=== PATIENT | male | born 1950 | race Caucasian/White ===

== ENCOUNTER 2022-04-21 10:20 | Emergency (ER) | payer MEDICARE, OTHER ==
[~2022-04-21] VITALS: Ht 167.6 cm; Wt 68.0 kg
[2022-04-21 10:20] VITALS: BP_SYST 154
[2022-04-21] MEDS ORDERED: predniSONE 20 MG TABLET PO ONE (10:45)
[2022-04-21] MEDS ORDERED: ALBUTEROL SULFATE 0.083% 2.5 MG/3 ML VIAL.NEB INH ONE (10:45)
[2022-04-21] MEDS ORDERED: IPRATROPIUM BROM 0.5 MG/2.5 ML VIAL.NEB (ATROVENT) INH ONE (10:45)
--- NOTE | 2022-04-21 10:52 | NUR ---
RECEIVED PT FROM JACQUELINE BEEBE. PT KULDIP ACLS FOR SOB. PT HAS COPD/ASTHMA, HAS BEEN TAKING BREATHING TREATMENTS WITH NO RESOLVE IN SOB. PT IS AAOX4, PERRL, R/A 97%. PT STATES HE HAS HAD NAUSEA. DISTAL PULSES NORMAL. TELEMONITOR SHOWS SINUS TACH HR 102, PT RECEIVING BREATHING TX AT THIS TIME. DISTAL PULSES NORMAL, SKIN INTACT, NO EDEMA. DENIES PAIN. SIDERAILS UP X2.
--- NOTE | 2022-04-21 10:55 | NUR ---
RT AT BEDSIDE GIVING BREATHING TX.
--- NOTE | 2022-04-21 10:55 | NUR ---
# 20 gauge angiocath placed to LW. Use of asceptic technique. Opsite placed over site. Blood return noted. Blood for lab drawn from site. Flushed with 10 cc of normal saline. No evidence of infiltration noted. Patient tolerated well.
--- NOTE | 2022-04-21 11:16 | NUR ---
DR. TODD AT BEDSIDE TO ASSESS PT.
[2022-04-21] MEDS ORDERED: IPRA3AMP9 INH (11:23)
[2022-04-21] MEDS ORDERED: PRED20TA PO (11:23)
[2022-04-21] MEDS ORDERED: ALBMDI INH (11:23)
[2022-04-21] MEDS ORDERED: KETOROLAC TROMETHAMINE 60 MG/2 ML VIAL IM ONE (11:30)
--- NOTE | 2022-04-21 11:40 | NUR ---
TORADOL 60MG IM GIVEN TO LEFT DELTOID. PREDNISONE PO 60MG GIVEN AND TOLERATED WELL.
[2022-04-21 11:51] VITALS: BP_SYST 154
--- NOTE | 2022-04-21 12:12 | NUR ---
DR. CHAVEZ, [facility], CALLED BACK TO SPEAK TO DR. TODD REGARDING PT STATUS
--- NOTE | 2022-04-21 12:13 | NUR ---
PT UNABLE TO DRIVE HIMSELF HOME AND STATES HE NEEDS A W/C TO GET TO HIS HOUSE. JACQUELINE DREW CALLED [facility] TO SCHEDULE AMBULANCE RIDE HOME. AWAITING CALL BACK.
--- NOTE | 2022-04-21 14:13 | NUR ---
PT TRANSFERRED BLS TO HOME AT THIS TIME. REPORT GIVEN TO DIONNE WOO WITH [facility]. IV CATH REMOVED. SITE COVERED WITH [employer] DRESSING. SITE WNL. PT DENIES PAIN. RESP E/U. NO RESP DISTRESS NOTED. PT'S DISCHARGE ORDERS REVIEWED ALL QUESTIONS AND CONCERNS ADDRESSED.
--- NOTE | 2022-04-21 18:53 | NUR ---
Patient given written and verbal discharge instructions and verbalizes understanding. ER MD discussed with patient the results and treatment provided. Patient in stable condition. ID arm band removed. IV catheter removed intact and dressing applied, no active bleeding. Rx of ALBUTEROL MDA, DUONEB AND PREDNISONE given. Patient educated on pain management and to follow up with PMD. Pain Scale 0/10. Opportunity for questions provided and answered. Medication side effect fact sheet provided.
== END 2022-04-21 11:51 | disposition home or self-care (01) ==
LOC: SED 10:20
DX: J44.1 Chronic obstructive pulmonary disease with (acute) exacerbation (principal); R06.02 Shortness of breath; R05.9 Cough, unspecified; F12.90 Cannabis use, unspecified, uncomplicated; Z79.899 Other long term (current) drug therapy
CPT/HCPCS: 94640; 99283; 96372; J7512; J1885; J7613

== ENCOUNTER 2022-11-12 14:23 | Inpatient (IN) | payer MEDICARE, MEDICAID ==
[~2022-11-12] VITALS: Ht 167.6 cm; Wt 60.8 kg
[~2022-11-12 14:23] MED LIST: ALBMDI INH; IPRA3AMP9 INH; PRED20TA PO
[2022-11-12 14:37] VITALS: BP_SYST 162; PULSE 83; RESP 26; TEMP 97; O2SAT 97
[2022-11-12 14:39] LABS: ABG O2 SAT% ESTIMATE 95.9 % (94.0-100.0); BLOOD GAS PCO2 42.2 mmHg (32.0-45.0); BLOOD GAS PH 7.314 (7.350-7.450); BLOOD GAS PO2 87.4 mmHg (75.0-100.0)
[2022-11-12 14:43] LABS: ALLEN'S TEST POSITIVE (P)
[2022-11-12 14:54] LABS: BASOPHILS % (AUTO) 0.1 % (0.0-2.0); HEMATOCRIT 35.1 % (36-54); HEMOGLOBIN 10.8 g/dL (14.0-18.0); LYMPHOCYTES # (AUTO) 0.9 K/uL (1.0-5.5); LYMPHOCYTES % (AUTO) 4.5 % (20.5-51.5); MEAN CORPUSCULAR HEMOGLOBIN 25 pg (27-31); MEAN CORPUSCULAR HGB CONC 31 % (32-36); MEAN CORPUSCULAR VOLUME 80 fL (79.0-98.0); MONOCYTES # (AUTO) 1.1 K/uL (0.0-1.0); MONOCYTES % (AUTO) 5.2 % (1.7-9.3); NEUTROPHILS # (AUTO) 18.6 K/uL (1.8-7.7); NEUTROPHILS % (AUTO) 90.2 % (40.0-70.0); PLATELET COUNT (AUTO) 455 K/uL (130-430); WHITE BLOOD COUNT (AUTO) 20.6 K/uL (4.8-10.8)
[2022-11-12] MEDS ORDERED: FLUO20CA42 PO (15:00)
[2022-11-12] MEDS ORDERED: SENN-153 PO (15:00)
[2022-11-12] MEDS ORDERED: PRED10TA PO (15:00)
[2022-11-12] MEDS ORDERED: FAMO-132 PO (15:00)
[2022-11-12] MEDS ORDERED: AZIT-93 PO (15:00)
[2022-11-12 15:22] LABS: ANION GAP 14 (5-15); CALCIUM 8.1 mg/dL (8.4-11.0); CARBON DIOXIDE 22 mmol/L (23-29); CHLORIDE 99 mmol/L (98-107); CREATININE 1.48 mg/dL (0.55-1.30); GLUCOSE 217 mg/dL (74-106); POTASSIUM 4.5 mmol/L (3.5-5.1); SODIUM SERUM 135 mmol/L (136-145); UREA NITROGEN, BLOOD 27 mg/dL (8-21)
[2022-11-12 15:27] LABS: ALANINE AMINOTRANSFERASE 23 U/L (12-78); ALBUMIN 3.5 g/dL (3.4-4.8); ASPARTATE AMINOTRANSFERASE 14 U/L (10-37); TOTAL BILIRUBIN 0.5 mg/dL (0.0-1.0); TOTAL PROTEIN, SERUM 6.8 g/dL (6.4-8.3)
[2022-11-12 15:53] LABS: BILIRUBIN,URINE NEGATIVE (NEGATIVE); BLOOD, URINE NEGATIVE (NEGATIVE); CLARITY/URINE Clear (CLEAR); COLOR,URINE YELLOW (YELLOW); GLUCOSE,URINE NEGATIVE (NEGATIVE); KETONES,URINE NEGATIVE (NEGATIVE); LEUKOCYTE ESTERASE ,URINE NEGATIVE (NEGATIVE); NITRITE, URINE NEGATIVE (NEGATIVE); PH,URINE 5.5 (5.0-8.0); UROBILINOGEN,URINE 0.2 (0.2-1.0)
[2022-11-12 16:11] LABS: PROTEIN URINE TRACE (NEGATIVE)
[2022-11-12 16:12] LABS: BACTERIA,URINE RARE /HPF (None Seen); HYALINE CASTS, URINE 0-10 /LPF (None Seen); RBC,URINE NONE SEEN /HPF (0-3); WBC,URINE 0-3 /HPF (0-3)
[2022-11-12 16:13] LABS: MUCUS,URINE 1+ /LPF (None Seen)
[2022-11-12] MEDS ORDERED: NS 1000 ML IV.SOLN IV ONE (17:15)
[2022-11-12 17:32] LABS: INR 1.1 (0.80-1.20); PROTHROMBIN TIME 11.5 SECS (9.5-12.5)
[2022-11-12] MEDS ORDERED: PIPERACILLIN/TAZO 4.5 GM in NS 100 ML IV ONE (18:00)
[2022-11-12] MEDS: IPRATROPIUM/ALBUTEROL SULFATE 3 ML AMPUL.NEB (DUONEB) INH SCH (20:15)
[2022-11-12] MEDS ORDERED: ACETAMINOPHEN 325 MG TABLET PO PRN (20:15)
[2022-11-12] MEDS ORDERED: ALPRAZolam 0.25 MG TABLET PO PRN (20:15)
[2022-11-12] MEDS ORDERED: traMADol HCL HCL 50 MG TABLET (ULTRAM) PO PRN (20:30)
[2022-11-12] MEDS ORDERED: TEMAZEPAM 15 MG CAPSULE PO PRN (20:30)
[2022-11-12] MEDS ORDERED: TUBERCULIN,PURIF.PROT.DERIV. 0.1 ML SYR ID ONE (21:46)
[2022-11-12 21:55] VITALS: BP_SYST 161; PULSE 64; RESP 20; TEMP 97.2; O2SAT 95
[2022-11-12 22:28] VITALS: BP_SYST 161; PULSE 64; RESP 20; TEMP 97.2
[2022-11-12 22:36] VITALS: O2SAT 95
[2022-11-12 22:54] VITALS: BP_SYST 161; PULSE 64; RESP 20; TEMP 97.2; O2SAT 95
[2022-11-12] MEDS: TAMSULOSIN HCL 0.4 MG CAP PO SCH (23:12)
[2022-11-12] MEDS: SENNOSIDES 8.6 MG TABLET PO SCH (23:12)
[2022-11-12] MEDS ORDERED: PIPERACILLIN/TAZOBACTAM 3.375 GM/VIAL (ZOSYN) IV ONE (23:14)
[2022-11-12] MEDS ORDERED: METHYLPREDNISOLONE SOD SUCC 40 MG/ML VIAL ONE (23:17)
[2022-11-12] MEDS: IPRATROPIUM/ALBUTEROL SULFATE 3 ML AMPUL.NEB (DUONEB) INH PRN (23:39)
[2022-11-12] MEDS: PIPERACILLIN/TAZO 3.375/DEX-IS 50 ML IV SCH (23:39)
[2022-11-12] MEDS: METHYLPREDNISOLONE SOD SUCC 40 MG/ML VIAL IVP SCH (23:39)
[2022-11-12] MEDS: D5LR 1,000 ML IV SCH (23:40)
[2022-11-13] VITALS (12 sets, daily range): BP systolic 134–161; PULSE 53–80; RESP 18–24; TEMP 97.5–98.5; O2SAT 93–98
[2022-11-13] MEDS: IPRATROPIUM/ALBUTEROL SULFATE 3 ML AMPUL.NEB (DUONEB) INH SCH ×4 (01:17→20:37)
[2022-11-13] MEDS: PIPERACILLIN/TAZO 3.375/DEX-IS 50 ML IV SCH ×3 (05:16→18:18)
[2022-11-13 06:21] LABS: BASOPHILS % (AUTO) 0.1 % (0.0-2.0); HEMATOCRIT 31.5 % (36-54); HEMOGLOBIN 9.7 g/dL (14.0-18.0); LYMPHOCYTES # (AUTO) 0.3 K/uL (1.0-5.5); LYMPHOCYTES % (AUTO) 1.2 % (20.5-51.5); MEAN CORPUSCULAR HEMOGLOBIN 25 pg (27-31); MEAN CORPUSCULAR HGB CONC 31 % (32-36); MEAN CORPUSCULAR VOLUME 81 fL (79.0-98.0); MONOCYTES # (AUTO) 0.5 K/uL (0.0-1.0); MONOCYTES % (AUTO) 2.4 % (1.7-9.3); NEUTROPHILS # (AUTO) 20.5 K/uL (1.8-7.7); NEUTROPHILS % (AUTO) 96.3 % (40.0-70.0); PLATELET COUNT (AUTO) 296 K/uL (130-430); RED BLOOD CELL COUNT(AUTO) 3.91 MIL/uL (4.2-6.2); RED CELL DISTRIBUTION WIDTH 23.9 % (9.0-15.0); WHITE BLOOD COUNT (AUTO) 21.3 K/uL (4.8-10.8)
[2022-11-13 06:44] LABS: ALANINE AMINOTRANSFERASE 40 U/L (12-78); ALBUMIN 2.9 g/dL (3.4-4.8); ANION GAP 13 (5-15); ASPARTATE AMINOTRANSFERASE 30 U/L (10-37); CALCIUM 7.9 mg/dL (8.4-11.0); CARBON DIOXIDE 20 mmol/L (23-29); CHLORIDE 104 mmol/L (98-107); CREATININE 0.99 mg/dL (0.55-1.30); GLUCOSE 159 mg/dL (74-106); PHOSPHORUS 3.3 mg/dL (2.7-4.5); POTASSIUM 3.8 mmol/L (3.5-5.1); SODIUM SERUM 137 mmol/L (136-145); TOTAL BILIRUBIN 0.5 mg/dL (0.0-1.0); TOTAL IRON BIND. CAPACITY 302 ug/dL (250-450); UREA NITROGEN, BLOOD 25 mg/dL (8-21)
[2022-11-13] MEDS: LORazepam 2 MG/ML VIAL IVP PRN ×3 (07:31→20:30)
[2022-11-13] MEDS: SENNOSIDES 8.6 MG TABLET PO SCH ×2 (09:49→20:30)
[2022-11-13] MEDS: METHYLPREDNISOLONE SOD SUCC 40 MG/ML VIAL IVP SCH ×2 (09:49→18:30)
[2022-11-13] MEDS: FAMOTIDINE 20 MG TABLET PO SCH (09:49)
[2022-11-13] MEDS: MULTIVITS,CA,MINERALS/IRON/FA 1 TABLET PO SCH (09:49)
[2022-11-13] MEDS: TAMSULOSIN HCL 0.4 MG CAP PO SCH ×2 (09:49→20:30)
[2022-11-13] MEDS: FLUoxetine HCL 20 MG CAPSULE (PROzac) PO SCH (09:50)
[2022-11-13] MEDS ORDERED: ONDANSETRON HCL 4 MG/2 ML VIAL IVP PRN (11:15)
[2022-11-13] MEDS: AZITHROMYCIN 500 MG in NS 250 ML IV SCH (15:17)
[2022-11-13] MEDS: SOD FERRIC GLUC COMPLEX/SUC 125 MG in NS 100 ML IV SCH (15:18)
[2022-11-13] MEDS ORDERED: QUEtiapine FUMARATE 25 MG TABLET PO SCH (18:00)
[2022-11-13] MEDS: D5LR 1,000 ML IV SCH (20:31)
[2022-11-14] VITALS (10 sets, daily range): BP systolic 114–138; PULSE 55–103; RESP 18–19; TEMP 97.2–98.8; O2SAT 94–99
[2022-11-14] MEDS: PIPERACILLIN/TAZO 3.375/DEX-IS 50 ML IV SCH ×4 (00:34→19:52)
[2022-11-14] MEDS: METHYLPREDNISOLONE SOD SUCC 40 MG/ML VIAL IVP SCH ×4 (00:34→20:29)
[2022-11-14] MEDS: LORazepam 2 MG/ML VIAL IVP PRN ×3 (00:34→20:30)
[2022-11-14] MEDS: D5LR 1,000 ML IV SCH ×2 (05:06→11:37)
[2022-11-14] MEDS: IPRATROPIUM/ALBUTEROL SULFATE 3 ML AMPUL.NEB (DUONEB) INH SCH ×3 (07:29→19:57)
[2022-11-14 08:34] LABS: ANION GAP 10 (5-15); CALCIUM 8.1 mg/dL (8.4-11.0); CARBON DIOXIDE 24 mmol/L (23-29); CHLORIDE 106 mmol/L (98-107); CREATININE 0.71 mg/dL (0.55-1.30); GLUCOSE 167 mg/dL (74-106); POTASSIUM 3.5 mmol/L (3.5-5.1); SODIUM SERUM 140 mmol/L (136-145); UREA NITROGEN, BLOOD 15 mg/dL (8-21)
[2022-11-14 08:51] LABS: HEMATOCRIT 27.6 % (36-54); HEMOGLOBIN 8.7 g/dL (14.0-18.0); LYMPHOCYTES # (AUTO) 0.2 K/uL (1.0-5.5); LYMPHOCYTES % (AUTO) 1.2 % (20.5-51.5); MEAN CORPUSCULAR HEMOGLOBIN 25 pg (27-31); MEAN CORPUSCULAR HGB CONC 31 % (32-36); MEAN CORPUSCULAR VOLUME 79 fL (79.0-98.0); MONOCYTES # (AUTO) 0.4 K/uL (0.0-1.0); MONOCYTES % (AUTO) 3.1 % (1.7-9.3); NEUTROPHILS # (AUTO) 12.8 K/uL (1.8-7.7); NEUTROPHILS % (AUTO) 95.7 % (40.0-70.0); PLATELET COUNT (AUTO) 245 K/uL (130-430); RED BLOOD CELL COUNT(AUTO) 3.48 MIL/uL (4.2-6.2)
[2022-11-14 09:10] LABS: WHITE BLOOD COUNT (AUTO) 13.4 K/uL (4.8-10.8)
[2022-11-14] MEDS: MULTIVITS,CA,MINERALS/IRON/FA 1 TABLET PO SCH (11:26)
[2022-11-14] MEDS: TAMSULOSIN HCL 0.4 MG CAP PO SCH ×2 (11:26→21:20)
[2022-11-14] MEDS: FLUoxetine HCL 20 MG CAPSULE (PROzac) PO SCH (11:26)
[2022-11-14] MEDS: FAMOTIDINE 20 MG TABLET PO SCH (11:27)
[2022-11-14] MEDS: SENNOSIDES 8.6 MG TABLET PO SCH ×2 (11:27→21:20)
[2022-11-14] MEDS: AZITHROMYCIN 500 MG in NS 250 ML IV SCH (13:51)
[2022-11-14] MEDS: SOD FERRIC GLUC COMPLEX/SUC 125 MG in NS 100 ML IV SCH (14:10)
[2022-11-14] MEDS ORDERED: QUEtiapine FUMARATE 25 MG TABLET PO SCH (18:00)
[2022-11-15] VITALS (9 sets, daily range): BP systolic 115–141; PULSE 42–80; RESP 17–20; TEMP 96.9–98.4; O2SAT 96–98
[2022-11-15] MEDS: IPRATROPIUM/ALBUTEROL SULFATE 3 ML AMPUL.NEB (DUONEB) INH SCH ×4 (02:10→20:01)
[2022-11-15] MEDS: PIPERACILLIN/TAZO 3.375/DEX-IS 50 ML IV SCH ×5 (06:49→23:10)
[2022-11-15 09:20] LABS: ABG O2 SAT% ESTIMATE 95.7 % (94.0-100.0); BLOOD GAS BASE EXCESS 1.4 mmol/L (-3.0-3.0); BLOOD GAS PCO2 32.3 mmHg (32.0-45.0); BLOOD GAS PH 7.488 (7.350-7.450); BLOOD GAS PO2 72.1 mmHg (75.0-100.0)
[2022-11-15 09:28] LABS: ALLEN'S TEST POSITIVE (P)
[2022-11-15] MEDS: FAMOTIDINE 20 MG TABLET PO SCH (10:27)
[2022-11-15] MEDS: FLUoxetine HCL 20 MG CAPSULE (PROzac) PO SCH (10:27)
[2022-11-15] MEDS: MULTIVITS,CA,MINERALS/IRON/FA 1 TABLET PO SCH (10:27)
[2022-11-15] MEDS: TAMSULOSIN HCL 0.4 MG CAP PO SCH ×2 (10:27→20:27)
[2022-11-15] MEDS: METHYLPREDNISOLONE SOD SUCC 40 MG/ML VIAL IVP SCH ×2 (10:28→20:28)
[2022-11-15] MEDS: SENNOSIDES 8.6 MG TABLET PO SCH ×2 (10:32→20:27)
[2022-11-15] MEDS ORDERED: CYANOCOBALAMIN (VITAMIN B-12) 1,000 MCG TABLET PO ONE (15:00)
[2022-11-15] MEDS: AZITHROMYCIN 500 MG in NS 250 ML IV SCH (15:29)
[2022-11-15] MEDS: SOD FERRIC GLUC COMPLEX/SUC 125 MG in NS 100 ML IV SCH (16:32)
[2022-11-15] MEDS ORDERED: EPOETIN ALFA-EPBX 4,000 UNITS/ML VIAL SUBCUT ONE (18:00)
[2022-11-15] MEDS: QUEtiapine FUMARATE 100 MG TABLET PO SCH (19:04)
[2022-11-15] MEDS: D5LR 1,000 ML IV SCH (23:09)
[2022-11-16] VITALS (11 sets, daily range): BP systolic 133–148; PULSE 62–76; RESP 16–18; TEMP 97.6–98.2; O2SAT 92–98
[2022-11-16] MEDS: IPRATROPIUM/ALBUTEROL SULFATE 3 ML AMPUL.NEB (DUONEB) INH SCH ×4 (01:41→20:58)
[2022-11-16] MEDS: PIPERACILLIN/TAZO 3.375/DEX-IS 50 ML IV SCH ×3 (05:18→17:50)
[2022-11-16 06:36] LABS: BASOPHILS # (AUTO) 0.1 K/uL (0.0-0.2); BASOPHILS % (AUTO) 0.4 % (0.0-2.0); EOSINOPHILS % (AUTO) 0.1 % (0.0-4.0); HEMATOCRIT 28.3 % (36-54); HEMOGLOBIN 9.1 g/dL (14.0-18.0); LYMPHOCYTES # (AUTO) 0.2 K/uL (1.0-5.5); LYMPHOCYTES % (AUTO) 1.7 % (20.5-51.5); MEAN CORPUSCULAR HEMOGLOBIN 25 pg (27-31); MEAN CORPUSCULAR HGB CONC 32 % (32-36); MEAN CORPUSCULAR VOLUME 79 fL (79.0-98.0); MONOCYTES # (AUTO) 0.8 K/uL (0.0-1.0); MONOCYTES % (AUTO) 5.9 % (1.7-9.3); NEUTROPHILS # (AUTO) 12.5 K/uL (1.8-7.7); NEUTROPHILS % (AUTO) 91.9 % (40.0-70.0); PLATELET COUNT (AUTO) 253 K/uL (130-430); RED BLOOD CELL COUNT(AUTO) 3.58 MIL/uL (4.2-6.2); RED CELL DISTRIBUTION WIDTH 24.2 % (9.0-15.0); RETICULOCYTE COUNT 1.1 % (0.5-1.5); WHITE BLOOD COUNT (AUTO) 13.6 K/uL (4.8-10.8)
[2022-11-16 07:10] LABS: ALANINE AMINOTRANSFERASE 190 U/L (12-78); ALBUMIN 2.7 g/dL (3.4-4.8); ANION GAP 8 (5-15); ASPARTATE AMINOTRANSFERASE 29 U/L (10-37); CALCIUM 8.4 mg/dL (8.4-11.0); CARBON DIOXIDE 27 mmol/L (23-29); CHLORIDE 106 mmol/L (98-107); CREATININE 0.71 mg/dL (0.55-1.30); GLUCOSE 138 mg/dL (74-106); POTASSIUM 3.3 mmol/L (3.5-5.1); SODIUM SERUM 141 mmol/L (136-145); TOTAL BILIRUBIN 0.7 mg/dL (0.0-1.0); TOTAL PROTEIN, SERUM 5.5 g/dL (6.4-8.3); UREA NITROGEN, BLOOD 10 mg/dL (8-21)
[2022-11-16] MEDS: SENNOSIDES 8.6 MG TABLET PO SCH ×2 (08:54→20:42)
[2022-11-16] MEDS: MULTIVITS,CA,MINERALS/IRON/FA 1 TABLET PO SCH (08:54)
[2022-11-16] MEDS: QUEtiapine FUMARATE 25 MG TABLET PO SCH (08:54)
[2022-11-16] MEDS: FAMOTIDINE 20 MG TABLET PO SCH (08:55)
[2022-11-16] MEDS: CYANOCOBALAMIN (VITAMIN B-12) 1,000 MCG TABLET PO SCH (08:55)
[2022-11-16] MEDS: TAMSULOSIN HCL 0.4 MG CAP PO SCH ×2 (08:55→20:42)
[2022-11-16] MEDS: METHYLPREDNISOLONE SOD SUCC 40 MG/ML VIAL IVP SCH ×2 (10:25→21:21)
[2022-11-16] MEDS ORDERED: CYAN-45 PO (13:00)
[2022-11-16] MEDS ORDERED: TAMS0.4C96 PO (13:00)
[2022-11-16] MEDS ORDERED: SER25 PO (13:00)
[2022-11-16] MEDS ORDERED: SER100 PO (13:00)
[2022-11-16] MEDS ORDERED: PRED10TA PO (13:02)
[2022-11-16] MEDS: AZITHROMYCIN 500 MG in NS 250 ML IV SCH (13:53)
[2022-11-16] MEDS: SOD FERRIC GLUC COMPLEX/SUC 125 MG in NS 100 ML IV SCH (13:53)
[2022-11-16] MEDS: QUEtiapine FUMARATE 100 MG TABLET PO SCH (17:07)
[2022-11-16] MEDS: D5LR 1,000 ML IV SCH (21:53)
[2022-11-17] VITALS (11 sets, daily range): BP systolic 113–159; PULSE 61–85; RESP 17–20; TEMP 97.6–98; O2SAT 90–99
[2022-11-17] MEDS: PIPERACILLIN/TAZO 3.375/DEX-IS 50 ML IV SCH ×4 (00:38→18:10)
[2022-11-17] MEDS: IPRATROPIUM/ALBUTEROL SULFATE 3 ML AMPUL.NEB (DUONEB) INH SCH ×4 (01:34→19:39)
[2022-11-17] MEDS: SENNOSIDES 8.6 MG TABLET PO SCH ×2 (08:51→20:49)
[2022-11-17] MEDS: TAMSULOSIN HCL 0.4 MG CAP PO SCH ×2 (08:51→20:49)
[2022-11-17] MEDS: MULTIVITS,CA,MINERALS/IRON/FA 1 TABLET PO SCH (08:51)
[2022-11-17] MEDS: FAMOTIDINE 20 MG TABLET PO SCH (08:51)
[2022-11-17] MEDS: QUEtiapine FUMARATE 25 MG TABLET PO SCH (08:51)
[2022-11-17] MEDS: CYANOCOBALAMIN (VITAMIN B-12) 1,000 MCG TABLET PO SCH (08:51)
[2022-11-17] MEDS: METHYLPREDNISOLONE SOD SUCC 40 MG/ML VIAL IVP SCH (10:36)
[2022-11-17] MEDS ORDERED: MENTHOL/ZINC OXIDE 113 GM OINT. TP PRN (13:45)
[2022-11-17] MEDS: AZITHROMYCIN 500 MG in NS 250 ML IV SCH (14:59)
[2022-11-17] MEDS: SOD FERRIC GLUC COMPLEX/SUC 125 MG in NS 100 ML IV SCH (14:59)
[2022-11-17] MEDS: QUEtiapine FUMARATE 100 MG TABLET PO SCH (17:59)
[2022-11-18] VITALS (10 sets, daily range): BP systolic 87–110; PULSE 55–74; RESP 18; TEMP 97.6–98.2; O2SAT 91–99
[2022-11-18] MEDS: PIPERACILLIN/TAZO 3.375/DEX-IS 50 ML IV SCH ×4 (00:51→18:23)
[2022-11-18] MEDS: IPRATROPIUM/ALBUTEROL SULFATE 3 ML AMPUL.NEB (DUONEB) INH SCH ×4 (01:23→20:00)
[2022-11-18] MEDS: IPRATROPIUM/ALBUTEROL SULFATE 3 ML AMPUL.NEB (DUONEB) INH PRN (05:33)
[2022-11-18] MEDS: CYANOCOBALAMIN (VITAMIN B-12) 1,000 MCG TABLET PO SCH (10:04)
[2022-11-18] MEDS: METHYLPREDNISOLONE SOD SUCC 40 MG/ML VIAL IVP SCH (10:04)
[2022-11-18] MEDS: FAMOTIDINE 20 MG TABLET PO SCH (10:05)
[2022-11-18] MEDS: SENNOSIDES 8.6 MG TABLET PO SCH ×2 (10:05→20:36)
[2022-11-18] MEDS: MULTIVITS,CA,MINERALS/IRON/FA 1 TABLET PO SCH (10:05)
[2022-11-18] MEDS: QUEtiapine FUMARATE 25 MG TABLET PO SCH ×2 (10:05→20:38)
[2022-11-18] MEDS: TAMSULOSIN HCL 0.4 MG CAP PO SCH ×2 (10:05→20:36)
[2022-11-18] MEDS ORDERED: POTASSIUM CHLORIDE 20 MEQ TAB.PRT.SR PO ONE (11:00)
[2022-11-18] MEDS: SOD FERRIC GLUC COMPLEX/SUC 125 MG in NS 100 ML IV SCH (13:57)
[2022-11-18] MEDS: QUEtiapine FUMARATE 100 MG TABLET PO SCH (18:23)
[2022-11-19] VITALS (11 sets, daily range): BP systolic 102–140; PULSE 66–120; RESP 14–20; TEMP 97.3–98.7; O2SAT 94–99
[2022-11-19] MEDS: PIPERACILLIN/TAZO 3.375/DEX-IS 50 ML IV SCH ×2 (00:38→06:20)
[2022-11-19 06:52] LABS: ANION GAP 7 (5-15); CALCIUM 7.7 mg/dL (8.4-11.0); CARBON DIOXIDE 30 mmol/L (23-29); CHLORIDE 107 mmol/L (98-107); CREATININE 0.74 mg/dL (0.55-1.30); GLUCOSE 110 mg/dL (74-106); POTASSIUM 3.4 mmol/L (3.5-5.1); SODIUM SERUM 144 mmol/L (136-145); UREA NITROGEN, BLOOD 12 mg/dL (8-21)
[2022-11-19 07:10] LABS: BASOPHILS # (AUTO) 0.1 K/uL (0.0-0.2); BASOPHILS % (AUTO) 0.3 % (0.0-2.0); EOSINOPHILS # (AUTO) 0.1 K/uL (0.0-0.4); EOSINOPHILS % (AUTO) 0.7 % (0.0-4.0); HEMATOCRIT 29.3 % (36-54); HEMOGLOBIN 9.1 g/dL (14.0-18.0); LYMPHOCYTES # (AUTO) 1.3 K/uL (1.0-5.5); LYMPHOCYTES % (AUTO) 7.7 % (20.5-51.5); MEAN CORPUSCULAR HEMOGLOBIN 26 pg (27-31); MEAN CORPUSCULAR HGB CONC 31 % (32-36); MEAN CORPUSCULAR VOLUME 82 fL (79.0-98.0); MONOCYTES # (AUTO) 0.8 K/uL (0.0-1.0); MONOCYTES % (AUTO) 4.4 % (1.7-9.3); NEUTROPHILS # (AUTO) 14.7 K/uL (1.8-7.7); NEUTROPHILS % (AUTO) 86.9 % (40.0-70.0); PLATELET COUNT (AUTO) 223 K/uL (130-430); RED BLOOD CELL COUNT(AUTO) 3.58 MIL/uL (4.2-6.2)
[2022-11-19] MEDS: IPRATROPIUM/ALBUTEROL SULFATE 3 ML AMPUL.NEB (DUONEB) INH SCH ×3 (07:35→20:00)
[2022-11-19] MEDS: MULTIVITS,CA,MINERALS/IRON/FA 1 TABLET PO SCH ×2 (08:52→09:00)
[2022-11-19] MEDS: SENNOSIDES 8.6 MG TABLET PO SCH ×3 (08:52→20:35)
[2022-11-19] MEDS: POTASSIUM CHLORIDE 20 MEQ TAB.PRT.SR PO SCH ×3 (08:53→20:36)
[2022-11-19] MEDS: TAMSULOSIN HCL 0.4 MG CAP PO SCH ×3 (08:53→20:35)
[2022-11-19] MEDS: FAMOTIDINE 20 MG TABLET PO SCH ×2 (08:53→09:00)
[2022-11-19] MEDS: QUEtiapine FUMARATE 25 MG TABLET PO SCH ×3 (08:53→20:35)
[2022-11-19] MEDS: CYANOCOBALAMIN (VITAMIN B-12) 1,000 MCG TABLET PO SCH ×2 (08:53→09:00)
[2022-11-19] MEDS: METHYLPREDNISOLONE SOD SUCC 40 MG/ML VIAL IVP SCH (09:44)
[2022-11-19 10:43] LABS: ANISOCYTOSIS 2+; HYPOCHROMASIA 1+; OVALOCYTES FEW; TEAR DROP CELLS RARE
[2022-11-19] MEDS: SOD FERRIC GLUC COMPLEX/SUC 125 MG in NS 100 ML IV SCH (13:28)
[2022-11-19] MEDS: QUEtiapine FUMARATE 100 MG TABLET PO SCH (17:52)
[2022-11-19] MEDS: EPOETIN ALFA-EPBX 4,000 UNITS/ML VIAL SUBCUT SCH (17:53)
[2022-11-19] MEDS ORDERED: traMADol HCL HCL 50 MG TABLET (ULTRAM) PO PRN (18:45)
[2022-11-19] MEDS: busPIRone HCL 5 MG TABLET PO SCH (20:35)
[2022-11-20] VITALS (8 sets, daily range): BP systolic 128–134; PULSE 69–88; RESP 17–19; TEMP 97.2–98.2; O2SAT 93–99
[2022-11-20] MEDS: IPRATROPIUM/ALBUTEROL SULFATE 3 ML AMPUL.NEB (DUONEB) INH SCH ×4 (01:00→19:39)
[2022-11-20 05:57] LABS: BASOPHILS % (AUTO) 0.3 % (0.0-2.0); EOSINOPHILS # (AUTO) 0.1 K/uL (0.0-0.4); EOSINOPHILS % (AUTO) 0.6 % (0.0-4.0); HEMATOCRIT 30.3 % (36-54); HEMOGLOBIN 9.5 g/dL (14.0-18.0); LYMPHOCYTES # (AUTO) 1.3 K/uL (1.0-5.5); LYMPHOCYTES % (AUTO) 8.7 % (20.5-51.5); MEAN CORPUSCULAR HEMOGLOBIN 26 pg (27-31); MEAN CORPUSCULAR HGB CONC 31 % (32-36); MEAN CORPUSCULAR VOLUME 83 fL (79.0-98.0); MONOCYTES # (AUTO) 0.8 K/uL (0.0-1.0); MONOCYTES % (AUTO) 5.4 % (1.7-9.3); NEUTROPHILS # (AUTO) 12.7 K/uL (1.8-7.7); PLATELET COUNT (AUTO) 251 K/uL (130-430); RED BLOOD CELL COUNT(AUTO) 3.67 MIL/uL (4.2-6.2); RED CELL DISTRIBUTION WIDTH 24.7 % (9.0-15.0); RETICULOCYTE COUNT 2.6 % (0.5-1.5); WHITE BLOOD COUNT (AUTO) 14.9 K/uL (4.8-10.8)
[2022-11-20 06:11] LABS: ANION GAP 3 (5-15); CALCIUM 8.1 mg/dL (8.4-11.0); CARBON DIOXIDE 29 mmol/L (23-29); CHLORIDE 105 mmol/L (98-107); GLUCOSE 109 mg/dL (74-106); POTASSIUM 3.8 mmol/L (3.5-5.1); SODIUM SERUM 137 mmol/L (136-145); UREA NITROGEN, BLOOD 15 mg/dL (8-21)
[2022-11-20] MEDS ORDERED: predniSONE 10 MG TABLET PO SCH (09:00)
[2022-11-20] MEDS: busPIRone HCL 5 MG TABLET PO SCH ×2 (10:04→21:44)
[2022-11-20] MEDS: QUEtiapine FUMARATE 25 MG TABLET PO SCH ×2 (10:05→21:44)
[2022-11-20] MEDS: SERTRALINE HCL 50 MG TABLET PO SCH (10:05)
[2022-11-20] MEDS: CYANOCOBALAMIN (VITAMIN B-12) 1,000 MCG TABLET PO SCH (10:06)
[2022-11-20] MEDS: SENNOSIDES 8.6 MG TABLET PO SCH ×2 (10:06→21:44)
[2022-11-20] MEDS: POTASSIUM CHLORIDE 20 MEQ TAB.PRT.SR PO SCH ×2 (10:06→21:43)
[2022-11-20] MEDS: FAMOTIDINE 20 MG TABLET PO SCH (10:06)
[2022-11-20] MEDS: MULTIVITS,CA,MINERALS/IRON/FA 1 TABLET PO SCH (10:08)
[2022-11-20] MEDS: TAMSULOSIN HCL 0.4 MG CAP PO SCH ×2 (10:11→21:43)
[2022-11-20] MEDS: ACETYLCYSTEINE 20% 4 ML VIAL (RT) INH SCH ×2 (12:34→19:40)
[2022-11-20] MEDS: SOD FERRIC GLUC COMPLEX/SUC 125 MG in NS 100 ML IV SCH (14:13)
[2022-11-20] MEDS: QUEtiapine FUMARATE 100 MG TABLET PO SCH (18:00)
[2022-11-20] MEDS: predniSONE 20 MG TABLET PO SCH (21:44)
[2022-11-21] VITALS (9 sets, daily range): BP systolic 102–135; PULSE 68–74; RESP 18–20; TEMP 97.3–98.9; O2SAT 96–100
[2022-11-21] MEDS: IPRATROPIUM/ALBUTEROL SULFATE 3 ML AMPUL.NEB (DUONEB) INH SCH ×4 (01:25→19:50)
[2022-11-21] MEDS: ACETYLCYSTEINE 20% 4 ML VIAL (RT) INH SCH ×4 (01:26→19:00)
[2022-11-21] MEDS: SENNOSIDES 8.6 MG TABLET PO SCH ×2 (10:01→21:59)
[2022-11-21] MEDS: predniSONE 20 MG TABLET PO SCH (10:01)
[2022-11-21] MEDS: MULTIVITS,CA,MINERALS/IRON/FA 1 TABLET PO SCH (10:01)
[2022-11-21] MEDS: SERTRALINE HCL 50 MG TABLET PO SCH (10:03)
[2022-11-21] MEDS: busPIRone HCL 5 MG TABLET PO SCH ×2 (10:03→21:59)
[2022-11-21] MEDS: POTASSIUM CHLORIDE 20 MEQ TAB.PRT.SR PO SCH ×2 (10:03→21:59)
[2022-11-21] MEDS: QUEtiapine FUMARATE 25 MG TABLET PO SCH ×2 (10:03→21:58)
[2022-11-21] MEDS: TAMSULOSIN HCL 0.4 MG CAP PO SCH ×2 (10:03→21:59)
[2022-11-21] MEDS: FAMOTIDINE 20 MG TABLET PO SCH (10:03)
[2022-11-21] MEDS: CYANOCOBALAMIN (VITAMIN B-12) 1,000 MCG TABLET PO SCH (10:04)
[2022-11-21] MEDS: IPRATROPIUM/ALBUTEROL SULFATE 3 ML AMPUL.NEB (DUONEB) INH PRN (14:03)
[2022-11-21] MEDS: EPOETIN ALFA-EPBX 4,000 UNITS/ML VIAL SUBCUT SCH (17:23)
[2022-11-21] MEDS: QUEtiapine FUMARATE 100 MG TABLET PO SCH (17:31)
[2022-11-21] MEDS ORDERED: predniSONE 10 MG TABLET PO SCH (21:00)
[2022-11-21] MEDS: METHYLPREDNISOLONE SOD SUCC 40 MG/ML VIAL IVP SCH (21:40)
[2022-11-21] MEDS: LORazepam 2 MG/ML VIAL IVP PRN (22:37)
[2022-11-22] VITALS (9 sets, daily range): BP systolic 134–160; PULSE 79–102; RESP 18–21; TEMP 97.4–98.9; O2SAT 95–99
[2022-11-22] MEDS: ACETYLCYSTEINE 20% 4 ML VIAL (RT) INH SCH ×4 (01:00→19:00)
[2022-11-22] MEDS ORDERED: HALOPERIDOL LACTATE 5 MG/ML VIAL IM ONE (01:15)
[2022-11-22] MEDS: IPRATROPIUM/ALBUTEROL SULFATE 3 ML AMPUL.NEB (DUONEB) INH SCH ×4 (01:55→20:08)
[2022-11-22] MEDS: METHYLPREDNISOLONE SOD SUCC 40 MG/ML VIAL IVP SCH ×3 (05:32→21:10)
[2022-11-22 05:46] LABS: BASOPHILS # (AUTO) 0.1 K/uL (0.0-0.2); BASOPHILS % (AUTO) 0.4 % (0.0-2.0); HEMATOCRIT 31.6 % (36-54); HEMOGLOBIN 9.9 g/dL (14.0-18.0); LYMPHOCYTES # (AUTO) 0.6 K/uL (1.0-5.5); LYMPHOCYTES % (AUTO) 2.7 % (20.5-51.5); MEAN CORPUSCULAR HEMOGLOBIN 26 pg (27-31); MEAN CORPUSCULAR HGB CONC 31 % (32-36); MEAN CORPUSCULAR VOLUME 83 fL (79.0-98.0); MONOCYTES # (AUTO) 0.6 K/uL (0.0-1.0); MONOCYTES % (AUTO) 2.7 % (1.7-9.3); NEUTROPHILS # (AUTO) 20.6 K/uL (1.8-7.7); NEUTROPHILS % (AUTO) 94.2 % (40.0-70.0); PLATELET COUNT (AUTO) 271 K/uL (130-430); WHITE BLOOD COUNT (AUTO) 21.9 K/uL (4.8-10.8)
[2022-11-22 06:31] LABS: ALANINE AMINOTRANSFERASE 65 U/L (12-78); ALBUMIN 2.7 g/dL (3.4-4.8); ANION GAP 13 (5-15); ASPARTATE AMINOTRANSFERASE 21 U/L (10-37); CARBON DIOXIDE 22 mmol/L (23-29); CHLORIDE 101 mmol/L (98-107); CREATININE 0.67 mg/dL (0.55-1.30); GLUCOSE 116 mg/dL (74-106); POTASSIUM 4.6 mmol/L (3.5-5.1); SODIUM SERUM 136 mmol/L (136-145); TOTAL BILIRUBIN 0.7 mg/dL (0.0-1.0); UREA NITROGEN, BLOOD 15 mg/dL (8-21)
[2022-11-22] MEDS: SENNOSIDES 8.6 MG TABLET PO SCH ×2 (09:57→21:55)
[2022-11-22] MEDS: MULTIVITS,CA,MINERALS/IRON/FA 1 TABLET PO SCH (09:57)
[2022-11-22] MEDS: FAMOTIDINE 20 MG TABLET PO SCH (09:57)
[2022-11-22] MEDS: SERTRALINE HCL 50 MG TABLET PO SCH (09:57)
[2022-11-22] MEDS: QUEtiapine FUMARATE 25 MG TABLET PO SCH ×2 (09:57→21:55)
[2022-11-22] MEDS: busPIRone HCL 5 MG TABLET PO SCH ×2 (09:57→21:55)
[2022-11-22] MEDS: TAMSULOSIN HCL 0.4 MG CAP PO SCH ×2 (09:57→21:55)
[2022-11-22] MEDS: CYANOCOBALAMIN (VITAMIN B-12) 1,000 MCG TABLET PO SCH (09:57)
[2022-11-22] MEDS: POTASSIUM CHLORIDE 20 MEQ TAB.PRT.SR PO SCH ×2 (10:02→21:55)
[2022-11-22] MEDS ORDERED: THIAMINE HCL 100 MG TABLET GT ONE (13:15)
[2022-11-22] MEDS: LORazepam 2 MG/ML VIAL IVP PRN (16:43)
[2022-11-22] MEDS: QUEtiapine FUMARATE 100 MG TABLET PO SCH (20:43)
[2022-11-23] VITALS (9 sets, daily range): BP systolic 112–134; PULSE 67–90; RESP 18; TEMP 96.8–98.5; O2SAT 94–99
[2022-11-23] MEDS: ACETYLCYSTEINE 20% 4 ML VIAL (RT) INH SCH ×4 (01:00→20:07)
[2022-11-23] MEDS: IPRATROPIUM/ALBUTEROL SULFATE 3 ML AMPUL.NEB (DUONEB) INH SCH ×4 (01:18→20:06)
[2022-11-23 06:04] LABS: BASOPHILS # (AUTO) 0.1 K/uL (0.0-0.2); BASOPHILS % (AUTO) 0.3 % (0.0-2.0); HEMATOCRIT 28.5 % (36-54); HEMOGLOBIN 8.9 g/dL (14.0-18.0); LYMPHOCYTES # (AUTO) 0.4 K/uL (1.0-5.5); LYMPHOCYTES % (AUTO) 2.5 % (20.5-51.5); MEAN CORPUSCULAR HEMOGLOBIN 26 pg (27-31); MEAN CORPUSCULAR HGB CONC 31 % (32-36); MEAN CORPUSCULAR VOLUME 84 fL (79.0-98.0); MONOCYTES # (AUTO) 0.8 K/uL (0.0-1.0); MONOCYTES % (AUTO) 4.2 % (1.7-9.3); PLATELET COUNT (AUTO) 233 K/uL (130-430); RED BLOOD CELL COUNT(AUTO) 3.42 MIL/uL (4.2-6.2); RED CELL DISTRIBUTION WIDTH 26.5 % (9.0-15.0); WHITE BLOOD COUNT (AUTO) 18.3 K/uL (4.8-10.8)
[2022-11-23] MEDS: METHYLPREDNISOLONE SOD SUCC 40 MG/ML VIAL IVP SCH ×2 (07:07→23:57)
[2022-11-23 07:11] LABS: ALANINE AMINOTRANSFERASE 58 U/L (12-78); ALBUMIN 2.5 g/dL (3.4-4.8); ANION GAP 12 (5-15); ASPARTATE AMINOTRANSFERASE 18 U/L (10-37); CALCIUM 7.9 mg/dL (8.4-11.0); CARBON DIOXIDE 23 mmol/L (23-29); CHLORIDE 105 mmol/L (98-107); CREATININE 0.65 mg/dL (0.55-1.30); GLUCOSE 152 mg/dL (74-106); POTASSIUM 4.1 mmol/L (3.5-5.1); SODIUM SERUM 140 mmol/L (136-145); TOTAL BILIRUBIN 0.6 mg/dL (0.0-1.0); TOTAL PROTEIN, SERUM 5.5 g/dL (6.4-8.3); UREA NITROGEN, BLOOD 22 mg/dL (8-21)
[2022-11-23] MEDS: THIAMINE HCL 100 MG TABLET GT SCH (09:38)
[2022-11-23] MEDS: CYANOCOBALAMIN (VITAMIN B-12) 1,000 MCG TABLET PO SCH (09:38)
[2022-11-23] MEDS: MULTIVITS,CA,MINERALS/IRON/FA 1 TABLET PO SCH (09:38)
[2022-11-23] MEDS: busPIRone HCL 5 MG TABLET PO SCH ×2 (09:38→21:09)
[2022-11-23] MEDS: POTASSIUM CHLORIDE 20 MEQ TAB.PRT.SR PO SCH ×2 (09:38→21:09)
[2022-11-23] MEDS: SERTRALINE HCL 50 MG TABLET PO SCH (09:38)
[2022-11-23] MEDS: SENNOSIDES 8.6 MG TABLET PO SCH ×2 (09:38→21:09)
[2022-11-23] MEDS: QUEtiapine FUMARATE 25 MG TABLET PO SCH ×2 (09:38→21:09)
[2022-11-23] MEDS: TAMSULOSIN HCL 0.4 MG CAP PO SCH ×2 (09:38→21:12)
[2022-11-23] MEDS: FAMOTIDINE 20 MG TABLET PO SCH (09:38)
[2022-11-23] MEDS: QUEtiapine FUMARATE 100 MG TABLET PO SCH (17:27)
[2022-11-24] VITALS (7 sets, daily range): BP systolic 121–138; PULSE 57–80; RESP 18–21; TEMP 97.2–97.8; O2SAT 93–100
[2022-11-24] MEDS: IPRATROPIUM/ALBUTEROL SULFATE 3 ML AMPUL.NEB (DUONEB) INH SCH ×4 (01:00→20:05)
[2022-11-24] MEDS: ACETYLCYSTEINE 20% 4 ML VIAL (RT) INH SCH ×4 (01:00→20:05)
[2022-11-24] MEDS: MULTIVITS,CA,MINERALS/IRON/FA 1 TABLET PO SCH (09:00)
[2022-11-24] MEDS: CYANOCOBALAMIN (VITAMIN B-12) 1,000 MCG TABLET PO SCH (09:00)
[2022-11-24] MEDS: SERTRALINE HCL 50 MG TABLET PO SCH (09:00)
[2022-11-24] MEDS: METHYLPREDNISOLONE SOD SUCC 40 MG/ML VIAL IVP SCH ×2 (09:00→21:27)
[2022-11-24] MEDS: POTASSIUM CHLORIDE 20 MEQ TAB.PRT.SR PO SCH ×2 (09:00→21:37)
[2022-11-24] MEDS: THIAMINE HCL 100 MG TABLET GT SCH (09:00)
[2022-11-24] MEDS: TAMSULOSIN HCL 0.4 MG CAP PO SCH ×2 (09:00→21:37)
[2022-11-24] MEDS: busPIRone HCL 5 MG TABLET PO SCH ×2 (09:00→21:38)
[2022-11-24] MEDS: FAMOTIDINE 20 MG TABLET PO SCH (09:00)
[2022-11-24] MEDS: SENNOSIDES 8.6 MG TABLET PO SCH ×2 (09:00→21:38)
[2022-11-24] MEDS: QUEtiapine FUMARATE 25 MG TABLET PO SCH ×2 (09:00→21:38)
[2022-11-24] MEDS: QUEtiapine FUMARATE 100 MG TABLET PO SCH (18:59)
[2022-11-25] VITALS (11 sets, daily range): BP systolic 108–137; PULSE 60–97; RESP 17–20; TEMP 97.4–97.9; O2SAT 93–97
[2022-11-25] MEDS: IPRATROPIUM/ALBUTEROL SULFATE 3 ML AMPUL.NEB (DUONEB) INH SCH ×3 (01:00→13:00)
[2022-11-25] MEDS: ACETYLCYSTEINE 20% 4 ML VIAL (RT) INH SCH ×3 (01:00→13:00)
[2022-11-25 06:46] LABS: HEMATOCRIT 33.9 % (36-54); HEMOGLOBIN 10.6 g/dL (14.0-18.0); MEAN CORPUSCULAR HEMOGLOBIN 26 pg (27-31); MEAN CORPUSCULAR HGB CONC 31 % (32-36); MEAN CORPUSCULAR VOLUME 84 fL (79.0-98.0); PLATELET COUNT (AUTO) 256 K/uL (130-430); RED BLOOD CELL COUNT(AUTO) 4.04 MIL/uL (4.2-6.2); RED CELL DISTRIBUTION WIDTH 27.3 % (9.0-15.0); WHITE BLOOD COUNT (AUTO) 21.9 K/uL (4.8-10.8)
[2022-11-25 07:51] LABS: ALANINE AMINOTRANSFERASE 61 U/L (12-78); ALBUMIN 2.8 g/dL (3.4-4.8); ANION GAP 10 (5-15); ASPARTATE AMINOTRANSFERASE 21 U/L (10-37); CALCIUM 9.6 mg/dL (8.4-11.0); CARBON DIOXIDE 24 mmol/L (23-29); CHLORIDE 106 mmol/L (98-107); CREATININE 0.67 mg/dL (0.55-1.30); GLUCOSE 206 mg/dL (74-106); POTASSIUM 4.6 mmol/L (3.5-5.1); SODIUM SERUM 140 mmol/L (136-145); TOTAL BILIRUBIN 0.7 mg/dL (0.0-1.0); TOTAL PROTEIN, SERUM 6.2 g/dL (6.4-8.3); UREA NITROGEN, BLOOD 31 mg/dL (8-21)
[2022-11-25 08:30] LABS: BASOPHILS % (MANUAL) 0 % (0-2); EOSINOPHILS % (MANUAL) 0 % (0-7); LYMPHOCYTES % (MANUAL) 1 % (20-46); MONOCYTES % (MANUAL) 5 % (0-11); PLATELET ESTIMATE ADEQUATE (ADEQUATE)
[2022-11-25 08:31] LABS: ANISOCYTOSIS 3+; OVALOCYTES FEW
[2022-11-25] MEDS: QUEtiapine FUMARATE 25 MG TABLET PO SCH (09:55)
[2022-11-25] MEDS: busPIRone HCL 5 MG TABLET PO SCH (09:55)
[2022-11-25] MEDS: SERTRALINE HCL 50 MG TABLET PO SCH (09:56)
[2022-11-25] MEDS: FAMOTIDINE 20 MG TABLET PO SCH (09:56)
[2022-11-25] MEDS: MULTIVITS,CA,MINERALS/IRON/FA 1 TABLET PO SCH (09:58)
[2022-11-25] MEDS: SENNOSIDES 8.6 MG TABLET PO SCH (09:58)
[2022-11-25] MEDS: POTASSIUM CHLORIDE 20 MEQ TAB.PRT.SR PO SCH (09:59)
[2022-11-25] MEDS: TAMSULOSIN HCL 0.4 MG CAP PO SCH (09:59)
[2022-11-25] MEDS: CYANOCOBALAMIN (VITAMIN B-12) 1,000 MCG TABLET PO SCH (09:59)
[2022-11-25] MEDS: THIAMINE HCL 100 MG TABLET GT SCH (10:00)
[2022-11-25] MEDS: METHYLPREDNISOLONE SOD SUCC 40 MG/ML VIAL IVP SCH (10:01)
[2022-11-25] MEDS: IPRATROPIUM/ALBUTEROL SULFATE 3 ML AMPUL.NEB (DUONEB) INH PRN (11:40)
[2022-11-25] MEDS: QUEtiapine FUMARATE 100 MG TABLET PO SCH (17:56)
[2022-11-25] MEDS ORDERED: QUEtiapine FUMARATE 25 MG TABLET PO SCH (18:00)
[2022-11-25] MEDS ORDERED: METHYLPREDNISOLONE SOD SUCC 40 MG/ML VIAL IVP SCH (21:00)
[2022-11-26] MEDS ORDERED: SERTRALINE HCL 50 MG TABLET PO SCH (09:00)
== END 2022-11-25 18:45 | disposition hospice, inpatient (51) | DRG 871 ==
LOC: SED 14:23 → STU 19:55 → SMU 11-15 16:27
PROVIDERS: ADMIT Internal Medicine; ATTEND Internal Medicine
DX: A41.9 Sepsis, unspecified organism (principal); J96.21 Acute and chronic respiratory failure with hypoxia; J44.1 Chronic obstructive pulmonary disease with (acute) exacerbation; F05 Delirium due to known physiological condition; E44.1 Mild protein-calorie malnutrition; F03.918 Unspecified dementia, unspecified severity, with other behavioral disturbance; F33.8 Other recurrent depressive disorders; Z51.5 Encounter for palliative care; F41.9 Anxiety disorder, unspecified; Z66 Do not resuscitate; K21.9 Gastro-esophageal reflux disease without esophagitis; J20.9 Acute bronchitis, unspecified; D64.9 Anemia, unspecified; F10.21 Alcohol dependence, in remission; E61.1 Iron deficiency; Z87.891 Personal history of nicotine dependence; Z68.21 Body mass index [BMI] 21.0-21.9, adult
CPT/HCPCS: 36415; 36600; 70450-TC; 71045; 76376; 80048; 80053; 81000; 82140; 82607; 82746; 82803; 83540; 83550; 83605; 83735; 84100; 84484; 85007; 85025; 85027; 85044; 85610-TC; 85730-TC; 86580; 87040; 87070-TC; 87081; 87086; 87205-TC; 93005; 94640; 94760; 96365; 97110-GP; 97116-GP; 97530-GP; 99291; G0378; J0456; J1030; J1630; J2060; J2405; J2543; J2916; J7050; J7512; J7608; Q5106